=== PATIENT | male | born 1945 | race Caucasian/White ===

== ENCOUNTER 2019-05-09 12:12 | Inpatient (IN) | payer MEDICARE, OTHER ==
[~2019-05-09] VITALS: Ht 167.6 cm; Wt 98.0 kg
[2019-05-09] VITALS (31 sets, daily range): BP systolic 77–120; BP diastolic 51–81; PULSE 103–130; RESP 19–30; Ht 167.6 cm; Wt 98.0 kg
[~2019-05-09 12:12] MED LIST: ALPR1TAB7 PO; AMIO200T4 PO; AMLO-147 PO; APIX2.5T PO; ASPI-817 PO; ATOR10TA65 PO; CARV3.1260 PO; CLOP75TA28 PO; CLOT15CR6 TOP; DULO60CA60 PO; EZET10TA32 PO; FER325 PO; FURO-110 PO; FURO80TA3 PO; ICOS1CAP PO; IPRA3AMP29 HHN; LISI10TA2 PO; LISI2.5T59 PO; MEMA7CAP PO; METO25TA4 PO; MIDO10TA PO; MIDO5TAB4 PO; NITR12SP TL; PANT40TA4 PO; SYMB80120 INHALATION
[2019-05-09] MEDS ORDERED: VANCOMYCIN 1 GM (PMX) 250 ML IVPB ONE (14:00)
[2019-05-09] MEDS ORDERED: PIPER-TAZO 2.25 GM (PMX) 50 ML IVPB ONE (14:00)
[2019-05-09] MEDS ORDERED: ASPIRIN 81 MG TAB PO ONE (15:00)
[2019-05-09] MEDS ORDERED: ALPRAZOLAM 1 MG TAB PO PRN (15:30)
[2019-05-09] MEDS ORDERED: NACL 0.9% 3 ML SYG IV SCH (16:00)
[2019-05-09] MEDS ORDERED: HYDROCODONE/APAP (5/325) TAB PO PRN (16:00)
[2019-05-09] MEDS ORDERED: morphine 2 MG INJ IV PRN (16:00)
[2019-05-09] MEDS ORDERED: ONDANSETRON 4 MG INJ IV PRN (16:00)
[2019-05-09] MEDS ORDERED: ALBUTEROL/IPRATROPIUM (NEB) 3 ML AMP HHN PRN (16:00)
[2019-05-09] MEDS ORDERED: NITROGLYCERIN (SL) 0.4 MG TAB SL PRN (16:00)
[2019-05-09] MEDS ORDERED: VANCOMYCIN IV PER PHARMACY XX SCH (16:30)
[2019-05-09] MEDS ORDERED: PIPER-TAZO 3.375 GM IV (PMX) 100 ML IVPB SCH (18:00)
[2019-05-09] MEDS ORDERED: VANCOMYCIN 1 GM in 250 ML IVPB ONE (18:00)
[2019-05-09] MEDS: NORepinephrine 8MG/250 ML (PMX 250 ML IV SCH (18:25)
[2019-05-09] MEDS ORDERED: HEPARIN 1000 UNITS/ML 10 ML INJ IV ONE (19:00)
[2019-05-09] MEDS ORDERED: HEPARIN 1000 UNITS/ML 10 ML INJ IV PRN (19:00)
[2019-05-09] MEDS: ALBUTEROL/IPRATROPIUM (NEB) 3 ML AMP HHN SCH (20:21)
[2019-05-09] MEDS: BUDESONIDE (NEB) 0.5MG/2ML AMP HHN SCH (20:21)
[2019-05-09] MEDS: SOD CHLORIDE 0.9% 1,000 ML IV SCH (21:02)
[2019-05-09] MEDS: ATORVASTATIN 80 MG TAB PO SCH (21:02)
[2019-05-09] MEDS: PIPER-TAZO 2.25 GM/NS 50 ML IVPB SCH (21:03)
[2019-05-09] MEDS: HEPARIN 25000 UNITS/250 ML 250 ML IV SCH (22:18)
[2019-05-10] VITALS (112 sets, daily range): BP systolic 89–120; BP diastolic 52–105; PULSE 80–138; RESP 14–38
[2019-05-10] MEDS: PIPER-TAZO 2.25 GM/NS 50 ML IVPB SCH ×3 (05:50→21:03)
[2019-05-10] MEDS: NORepinephrine 8MG/250 ML (PMX 250 ML IV SCH (07:28)
[2019-05-10] MEDS: PANTOPRAZOLE (EC) 40 MG TAB PO SCH (08:11)
[2019-05-10] MEDS: CLOPIDOGREL 75 MG TAB PO SCH (08:11)
[2019-05-10] MEDS: DULOXETINE 30 MG CAP DR PO SCH (08:11)
[2019-05-10] MEDS: MEMANTINE 5 MG TAB PO SCH ×2 (08:11→21:03)
[2019-05-10] MEDS: ALBUTEROL/IPRATROPIUM (NEB) 3 ML AMP HHN SCH ×3 (08:17→20:06)
[2019-05-10] MEDS: BUDESONIDE (NEB) 0.5MG/2ML AMP HHN SCH ×2 (08:17→20:06)
[2019-05-10] MEDS ORDERED: ALPRAZOLAM 0.5 MG TAB PO PRN (09:00)
[2019-05-10] MEDS ORDERED: ASPIRIN (EC) 81 MG TAB PO SCH (09:00)
[2019-05-10] MEDS ORDERED: AMIODARONE 150MG/D5W BOLUS 100 ML IV ONE (09:00)
[2019-05-10] MEDS: AMIODARONE 900 MG in DEXTROSE 5% 482 ML IV SCH (09:23)
[2019-05-10] MEDS ORDERED: LORAZEPAM 0.5 MG TAB PO PRN (14:30)
[2019-05-10] MEDS: SOD CHLORIDE 0.9% 1,000 ML IV SCH ×2 (16:00→16:21)
[2019-05-10] MEDS: HEPARIN 25000 UNITS/250 ML 250 ML IV SCH (16:31)
[2019-05-10] MEDS: ATORVASTATIN 80 MG TAB PO SCH (21:03)
[2019-05-11] VITALS (92 sets, daily range): BP systolic 79–123; BP diastolic 51–91; PULSE 59–105; RESP 10–38
[2019-05-11] MEDS: AMIODARONE 900 MG in DEXTROSE 5% 482 ML IV SCH (05:01)
[2019-05-11] MEDS: PIPER-TAZO 2.25 GM/NS 50 ML IVPB SCH ×3 (05:01→21:12)
[2019-05-11] MEDS: NORepinephrine 8MG/250 ML (PMX 250 ML IV SCH (05:08)
[2019-05-11] MEDS ORDERED: VANCOMYCIN RANDOM LEVEL XX ONE (06:00)
[2019-05-11] MEDS: ALBUTEROL/IPRATROPIUM (NEB) 3 ML AMP HHN SCH ×3 (08:07→19:43)
[2019-05-11] MEDS: BUDESONIDE (NEB) 0.5MG/2ML AMP HHN SCH ×2 (08:28→19:43)
[2019-05-11] MEDS: MEMANTINE 5 MG TAB PO SCH ×2 (09:40→20:30)
[2019-05-11] MEDS: DULOXETINE 30 MG CAP DR PO SCH (09:41)
[2019-05-11] MEDS: PANTOPRAZOLE (EC) 40 MG TAB PO SCH (09:41)
[2019-05-11] MEDS: CLOPIDOGREL 75 MG TAB PO SCH (09:41)
[2019-05-11] MEDS: HEPARIN 25000 UNITS/250 ML 250 ML IV SCH (11:48)
[2019-05-11] MEDS: SOD CHLORIDE 0.9% 1,000 ML IV SCH (12:00)
[2019-05-11] MEDS: VANCOMYCIN 1 GM 250 ML IVPB SCH ×2 (13:56→16:38)
[2019-05-11] MEDS: ACETAMINOPHEN 325 MG TAB PO PRN (14:13)
[2019-05-11] MEDS ORDERED: LIDOCAINE 1% (MPF) 5 ML VIAL ONE (16:17)
[2019-05-11] MEDS ORDERED: AMIODARONE 200 MG TAB PO SCH (19:45)
[2019-05-11] MEDS: ATORVASTATIN 80 MG TAB PO SCH (20:30)
[2019-05-11] MEDS ORDERED: ZOLPIDEM 5 MG TAB PO PRN (23:30)
[2019-05-12] VITALS (86 sets, daily range): BP systolic 87–159; BP diastolic 51–147; PULSE 78–121; RESP 13–33
[2019-05-12] MEDS: HEPARIN 25000 UNITS/250 ML 250 ML IV SCH (05:06)
[2019-05-12] MEDS: PIPER-TAZO 2.25 GM/NS 50 ML IVPB SCH ×2 (05:40→13:13)
[2019-05-12] MEDS: ALBUTEROL/IPRATROPIUM (NEB) 3 ML AMP HHN SCH ×3 (08:23→20:01)
[2019-05-12] MEDS: BUDESONIDE (NEB) 0.5MG/2ML AMP HHN SCH ×2 (08:23→20:01)
[2019-05-12] MEDS: AMIODARONE 200 MG TAB PO SCH ×2 (08:49→20:23)
[2019-05-12] MEDS: PANTOPRAZOLE (EC) 40 MG TAB PO SCH (08:49)
[2019-05-12] MEDS: CLOPIDOGREL 75 MG TAB PO SCH (08:49)
[2019-05-12] MEDS: DULOXETINE 30 MG CAP DR PO SCH (08:49)
[2019-05-12] MEDS: MEMANTINE 5 MG TAB PO SCH ×2 (08:49→20:23)
[2019-05-12] MEDS ORDERED: ACETAMINOPHEN 325 MG TAB PO PRN (09:30)
[2019-05-12] MEDS ORDERED: traMADol 50 MG TAB PO PRN (09:30)
[2019-05-12] MEDS: DOCUSATE SODIUM 100 MG CAP PO SCH ×2 (10:53→20:23)
[2019-05-12] MEDS ORDERED: DIGOXIN 500 MCG INJ IV ONE (11:30)
[2019-05-12] MEDS: APIXABAN 5 MG TABLET PO SCH ×2 (13:13→22:19)
[2019-05-12] MEDS: SOD FERRIC GLUC COMPLX 125 MG in SOD CHLORIDE 0.9% 100 ML IVPB SCH (13:13)
[2019-05-12] MEDS: ACETAMINOPHEN 325 MG TAB PO PRN (14:14)
[2019-05-12] MEDS: CEFTRIAXONE 1 GM/50 ML (PMX) 50 ML IVPB SCH (16:59)
[2019-05-12] MEDS: ATORVASTATIN 80 MG TAB PO SCH (20:22)
[2019-05-13] VITALS (30 sets, daily range): BP systolic 81–158; BP diastolic 46–89; PULSE 80–109; RESP 11–28
[2019-05-13] MEDS: ALBUTEROL/IPRATROPIUM (NEB) 3 ML AMP HHN SCH ×3 (08:04→19:39)
[2019-05-13] MEDS: BUDESONIDE (NEB) 0.5MG/2ML AMP HHN SCH ×2 (08:04→19:40)
[2019-05-13] MEDS: PANTOPRAZOLE (EC) 40 MG TAB PO SCH (09:20)
[2019-05-13] MEDS: MEMANTINE 5 MG TAB PO SCH ×2 (09:20→20:49)
[2019-05-13] MEDS: CLOPIDOGREL 75 MG TAB PO SCH (09:20)
[2019-05-13] MEDS: DULOXETINE 30 MG CAP DR PO SCH (09:20)
[2019-05-13] MEDS: DOCUSATE SODIUM 100 MG CAP PO SCH ×2 (09:20→20:50)
[2019-05-13] MEDS: APIXABAN 5 MG TABLET PO SCH ×2 (09:20→20:49)
[2019-05-13] MEDS: AMIODARONE 200 MG TAB PO SCH ×2 (09:20→20:49)
[2019-05-13] MEDS: SOD FERRIC GLUC COMPLX 125 MG in SOD CHLORIDE 0.9% 100 ML IVPB SCH (13:33)
[2019-05-13] MEDS: CEFTRIAXONE 1 GM/50 ML (PMX) 50 ML IVPB SCH (16:43)
[2019-05-13] MEDS: ATORVASTATIN 80 MG TAB PO SCH (20:50)
[2019-05-14] VITALS (28 sets, daily range): BP systolic 82–116; BP diastolic 50–84; PULSE 57–113; RESP 15–22
[2019-05-14] MEDS: ALBUMIN HUMAN 25% 100 ML IV PRN (07:49)
[2019-05-14] MEDS: MEMANTINE 5 MG TAB PO SCH ×2 (08:04→21:02)
[2019-05-14] MEDS: APIXABAN 5 MG TABLET PO SCH (08:04)
[2019-05-14] MEDS: DOCUSATE SODIUM 100 MG CAP PO SCH ×2 (08:04→21:01)
[2019-05-14] MEDS: CLOPIDOGREL 75 MG TAB PO SCH (08:04)
[2019-05-14] MEDS: AMIODARONE 200 MG TAB PO SCH ×2 (08:04→21:03)
[2019-05-14] MEDS: DULOXETINE 30 MG CAP DR PO SCH (08:04)
[2019-05-14] MEDS: PANTOPRAZOLE (EC) 40 MG TAB PO SCH (08:06)
[2019-05-14] MEDS: BUDESONIDE (NEB) 0.5MG/2ML AMP HHN SCH ×2 (10:28→20:15)
[2019-05-14] MEDS: ALBUTEROL/IPRATROPIUM (NEB) 3 ML AMP HHN SCH ×3 (10:28→20:00)
[2019-05-14] MEDS ORDERED: SOD CHLORIDE 0.9% 500 ML IV ONE (12:00)
[2019-05-14] MEDS: SOD FERRIC GLUC COMPLX 125 MG in SOD CHLORIDE 0.9% 100 ML IVPB SCH (13:09)
[2019-05-14] MEDS: CEFTRIAXONE 1 GM/50 ML (PMX) 50 ML IVPB SCH (16:04)
[2019-05-14] MEDS: ATORVASTATIN 80 MG TAB PO SCH (21:01)
[2019-05-15 00:03] VITALS: BP 131/67; PULSE 107; RESP 18
[2019-05-15] MEDS: ALBUTEROL/IPRATROPIUM (NEB) 3 ML AMP HHN SCH ×3 (07:37→19:56)
[2019-05-15] MEDS: BUDESONIDE (NEB) 0.5MG/2ML AMP HHN SCH ×2 (07:37→19:56)
[2019-05-15 08:22] VITALS: BP 101/58; PULSE 106; RESP 18
[2019-05-15] MEDS: PANTOPRAZOLE (EC) 40 MG TAB PO SCH (08:55)
[2019-05-15] MEDS: DULOXETINE 30 MG CAP DR PO SCH (08:55)
[2019-05-15] MEDS: MEMANTINE 5 MG TAB PO SCH ×2 (08:55→21:36)
[2019-05-15] MEDS: DOCUSATE SODIUM 100 MG CAP PO SCH ×2 (08:55→21:36)
[2019-05-15] MEDS: AMIODARONE 200 MG TAB PO SCH ×2 (08:56→21:37)
[2019-05-15 11:00] VITALS: BP 98/64; PULSE 92; RESP 18
[2019-05-15] MEDS: SOD FERRIC GLUC COMPLX 125 MG in SOD CHLORIDE 0.9% 100 ML IVPB SCH (13:07)
[2019-05-15] MEDS: POLYETHYLENE GLYCOL 17 GM PACKET PO PRN (15:22)
[2019-05-15 15:38] VITALS: BP 93/54; PULSE 77; RESP 18
[2019-05-15] MEDS: CEFTRIAXONE 1 GM/50 ML (PMX) 50 ML IVPB SCH (17:40)
[2019-05-15] MEDS: EPOETIN ALFA-EPBX (ESRD) 10,000 UNIT/ML VIAL SC SCH (18:04)
[2019-05-15 20:20] VITALS: BP 101/57; PULSE 82; RESP 20
[2019-05-15] MEDS: ATORVASTATIN 80 MG TAB PO SCH (21:36)
[2019-05-16] VITALS (19 sets, daily range): BP systolic 83–136; BP diastolic 40–82; PULSE 64–100; RESP 18–20
[2019-05-16] MEDS: POLYETHYLENE GLYCOL 17 GM PACKET PO PRN (06:03)
[2019-05-16] MEDS: ALBUMIN HUMAN 25% 100 ML IV SCH ×2 (06:05→06:54)
[2019-05-16] MEDS: BUDESONIDE (NEB) 0.5MG/2ML AMP HHN SCH ×2 (08:53→21:15)
[2019-05-16] MEDS: ALBUTEROL/IPRATROPIUM (NEB) 3 ML AMP HHN SCH ×3 (08:53→21:15)
[2019-05-16] MEDS: DULOXETINE 30 MG CAP DR PO SCH (09:28)
[2019-05-16] MEDS: DOCUSATE SODIUM 100 MG CAP PO SCH ×2 (09:28→23:34)
[2019-05-16] MEDS: PANTOPRAZOLE (EC) 40 MG TAB PO SCH (09:28)
[2019-05-16] MEDS: MEMANTINE 5 MG TAB PO SCH ×2 (09:28→23:35)
[2019-05-16] MEDS: AMIODARONE 200 MG TAB PO SCH ×2 (09:29→23:40)
[2019-05-16] MEDS: SOD FERRIC GLUC COMPLX 125 MG in SOD CHLORIDE 0.9% 100 ML IVPB SCH (13:00)
[2019-05-16] MEDS: CEFTRIAXONE 1 GM/50 ML (PMX) 50 ML IVPB SCH (16:02)
[2019-05-16] MEDS ORDERED: MINERAL OIL 133 ML ENEMA PR ONE (16:30)
[2019-05-16] MEDS ORDERED: BISACODYL (EC) 5 MG TAB PO PRN (16:30)
[2019-05-16] MEDS: ALBUMIN HUMAN 25% 100 ML IV PRN (16:39)
[2019-05-16] MEDS ORDERED: MINERAL OIL 133 ML ENEMA PR PRN (17:00)
[2019-05-16] MEDS: ATORVASTATIN 80 MG TAB PO SCH (23:35)
[2019-05-16] MEDS: ACETAMINOPHEN 325 MG TAB PO PRN (23:42)
[2019-05-17 00:08] VITALS: BP 92/54; PULSE 84; RESP 18
[2019-05-17 03:57] VITALS: BP 100/59; PULSE 89; RESP 18
[2019-05-17 06:57] VITALS: BP 118/54; PULSE 73; RESP 18
[2019-05-17] MEDS: ALBUTEROL/IPRATROPIUM (NEB) 3 ML AMP HHN SCH ×3 (08:39→20:00)
[2019-05-17] MEDS: AMIODARONE 200 MG TAB PO SCH ×3 (09:00→21:01)
[2019-05-17] MEDS: DULOXETINE 30 MG CAP DR PO SCH (09:52)
[2019-05-17] MEDS: PANTOPRAZOLE (EC) 40 MG TAB PO SCH (09:54)
[2019-05-17] MEDS: MEMANTINE 5 MG TAB PO SCH ×2 (09:54→21:00)
[2019-05-17] MEDS: DOCUSATE SODIUM 100 MG CAP PO SCH ×2 (09:54→21:00)
[2019-05-17] MEDS: BUDESONIDE (NEB) 0.5MG/2ML AMP HHN SCH ×2 (10:26→20:00)
[2019-05-17] MEDS: ALBUMIN HUMAN 25% 100 ML IV SCH ×2 (11:47→17:53)
[2019-05-17] MEDS ORDERED: LIDOCAINE 1% (MPF) 5 ML VIAL ONE (16:05)
[2019-05-17 16:35] VITALS: BP 114/59; PULSE 79; RESP 16
[2019-05-17 17:25] VITALS: BP 106/55; PULSE 90; RESP 20
[2019-05-17] MEDS: EPOETIN ALFA-EPBX (ESRD) 10,000 UNIT/ML VIAL SC SCH (17:54)
[2019-05-17 20:00] VITALS: BP 130/72; PULSE 72; RESP 18
[2019-05-17] MEDS: ATORVASTATIN 80 MG TAB PO SCH (21:00)
[2019-05-18] VITALS (22 sets, daily range): BP systolic 83–131; BP diastolic 49–67; PULSE 65–86; RESP 18–20
[2019-05-18] MEDS: ALBUMIN HUMAN 25% 100 ML IV SCH (02:13)
[2019-05-18] MEDS: BUDESONIDE (NEB) 0.5MG/2ML AMP HHN SCH ×2 (08:30→20:00)
[2019-05-18] MEDS: ALBUTEROL/IPRATROPIUM (NEB) 3 ML AMP HHN SCH ×3 (08:30→20:00)
[2019-05-18] MEDS: DOCUSATE SODIUM 100 MG CAP PO SCH ×2 (08:34→20:30)
[2019-05-18] MEDS: DULOXETINE 30 MG CAP DR PO SCH (08:34)
[2019-05-18] MEDS: AMIODARONE 200 MG TAB PO SCH (08:36)
[2019-05-18] MEDS: MEMANTINE 5 MG TAB PO SCH ×2 (08:36→20:31)
[2019-05-18] MEDS: PANTOPRAZOLE (EC) 40 MG TAB PO SCH (08:36)
[2019-05-18] MEDS: ALBUMIN HUMAN 25% 100 ML IV PRN (10:58)
[2019-05-18] MEDS: ATORVASTATIN 80 MG TAB PO SCH (20:31)
[2019-05-19] VITALS (13 sets, daily range): BP systolic 93–124; BP diastolic 44–78; PULSE 66–94; RESP 18–24
[2019-05-19] MEDS: LISINOPRIL 5 MG TAB PO SCH (08:18)
[2019-05-19] MEDS: BUDESONIDE (NEB) 0.5MG/2ML AMP HHN SCH ×2 (09:55→20:10)
[2019-05-19] MEDS: PANTOPRAZOLE (EC) 40 MG TAB PO SCH (10:48)
[2019-05-19] MEDS: AMIODARONE 200 MG TAB PO SCH (10:48)
[2019-05-19] MEDS: DULOXETINE 30 MG CAP DR PO SCH (10:48)
[2019-05-19] MEDS: DOCUSATE SODIUM 100 MG CAP PO SCH ×2 (10:48→21:09)
[2019-05-19] MEDS: MEMANTINE 5 MG TAB PO SCH ×2 (10:48→21:05)
[2019-05-19] MEDS: FUROSEMIDE 20 MG INJ IV SCH (11:41)
[2019-05-19] MEDS: ALBUTEROL/IPRATROPIUM (NEB) 3 ML AMP HHN SCH ×2 (14:26→20:10)
[2019-05-19] MEDS: EPOETIN ALFA-EPBX (ESRD) 10,000 UNIT/ML VIAL SC SCH (17:52)
[2019-05-19] MEDS: ATORVASTATIN 80 MG TAB PO SCH (21:09)
[2019-05-20] VITALS (20 sets, daily range): BP systolic 90–111; BP diastolic 47–70; PULSE 65–92; RESP 18–22
[2019-05-20] MEDS: BUDESONIDE (NEB) 0.5MG/2ML AMP HHN SCH ×2 (07:37→19:46)
[2019-05-20] MEDS: ALBUTEROL/IPRATROPIUM (NEB) 3 ML AMP HHN SCH ×3 (07:37→19:46)
[2019-05-20] MEDS: FUROSEMIDE 20 MG INJ IV SCH (09:00)
[2019-05-20] MEDS: LISINOPRIL 5 MG TAB PO SCH (09:00)
[2019-05-20] MEDS: MEMANTINE 5 MG TAB PO SCH ×2 (09:14→21:12)
[2019-05-20] MEDS: DULOXETINE 30 MG CAP DR PO SCH (09:14)
[2019-05-20] MEDS: PANTOPRAZOLE (EC) 40 MG TAB PO SCH (09:14)
[2019-05-20] MEDS: DOCUSATE SODIUM 100 MG CAP PO SCH ×2 (09:14→21:12)
[2019-05-20] MEDS: AMIODARONE 200 MG TAB PO SCH (09:17)
[2019-05-20] MEDS: ALBUMIN HUMAN 25% 100 ML IV PRN (11:00)
[2019-05-20] MEDS: POLYETHYLENE GLYCOL 17 GM PACKET PO PRN (14:55)
[2019-05-20] MEDS: ATORVASTATIN 80 MG TAB PO SCH (21:12)
[2019-05-21] VITALS (10 sets, daily range): BP systolic 95–122; BP diastolic 47–57; PULSE 65–103; RESP 18–22
[2019-05-21] MEDS: ALBUTEROL/IPRATROPIUM (NEB) 3 ML AMP HHN SCH ×3 (07:54→19:34)
[2019-05-21] MEDS: BUDESONIDE (NEB) 0.5MG/2ML AMP HHN SCH ×2 (07:54→19:34)
[2019-05-21] MEDS: DOCUSATE SODIUM 100 MG CAP PO SCH ×2 (08:38→21:00)
[2019-05-21] MEDS: PANTOPRAZOLE (EC) 40 MG TAB PO SCH (08:38)
[2019-05-21] MEDS: MEMANTINE 5 MG TAB PO SCH ×2 (08:38→21:08)
[2019-05-21] MEDS: AMIODARONE 200 MG TAB PO SCH (08:39)
[2019-05-21] MEDS: DULOXETINE 30 MG CAP DR PO SCH (08:39)
[2019-05-21] MEDS: FUROSEMIDE 20 MG INJ IV SCH (08:40)
[2019-05-21] MEDS: LISINOPRIL 5 MG TAB PO SCH (09:00)
[2019-05-21] MEDS ORDERED: BISACODYL 10 MG SUPP PR PRN (10:30)
[2019-05-21] MEDS: ATORVASTATIN 80 MG TAB PO SCH (21:08)
[2019-05-22] VITALS (21 sets, daily range): BP systolic 13–145; BP diastolic 24–78; PULSE 60–89; RESP 18–20
[2019-05-22] MEDS: ALBUTEROL/IPRATROPIUM (NEB) 3 ML AMP HHN SCH ×3 (08:38→19:41)
[2019-05-22] MEDS: BUDESONIDE (NEB) 0.5MG/2ML AMP HHN SCH ×2 (08:38→19:41)
[2019-05-22] MEDS: LISINOPRIL 5 MG TAB PO SCH (09:00)
[2019-05-22] MEDS: AMIODARONE 200 MG TAB PO SCH (09:05)
[2019-05-22] MEDS: MEMANTINE 5 MG TAB PO SCH (09:05)
[2019-05-22] MEDS: PANTOPRAZOLE (EC) 40 MG TAB PO SCH (09:05)
[2019-05-22] MEDS: DOCUSATE SODIUM 100 MG CAP PO SCH ×2 (09:06→20:21)
[2019-05-22] MEDS: DULOXETINE 30 MG CAP DR PO SCH (09:06)
[2019-05-22] MEDS: FUROSEMIDE 20 MG INJ IV SCH (09:07)
[2019-05-22] MEDS ORDERED: MIDODRINE 5 MG TAB PO ONE (14:30)
[2019-05-22] MEDS: EPOETIN ALFA-EPBX (ESRD) 10,000 UNIT/ML VIAL SC SCH (17:31)
[2019-05-22] MEDS: ATORVASTATIN 80 MG TAB PO SCH (23:08)
[2019-05-23 01:28] VITALS: BP 101/60; PULSE 107; RESP 16
[2019-05-23] MEDS: ALBUTEROL/IPRATROPIUM (NEB) 3 ML AMP HHN SCH ×2 (07:11→13:46)
[2019-05-23] MEDS: BUDESONIDE (NEB) 0.5MG/2ML AMP HHN SCH (07:11)
[2019-05-23 08:00] VITALS: BP 96/53; PULSE 72; RESP 16
[2019-05-23] MEDS: LISINOPRIL 5 MG TAB PO SCH (08:15)
[2019-05-23] MEDS: DULOXETINE 30 MG CAP DR PO SCH (09:18)
[2019-05-23] MEDS: DOCUSATE SODIUM 100 MG CAP PO SCH (09:18)
[2019-05-23] MEDS: AMIODARONE 200 MG TAB PO SCH (09:19)
[2019-05-23] MEDS: PANTOPRAZOLE (EC) 40 MG TAB PO SCH (09:19)
[2019-05-23] MEDS ORDERED: FUROSEMIDE 20 MG INJ IV SCH ×2 (09:20→09:30)
[2019-05-23 13:20] VITALS: BP 95/55; PULSE 73; RESP 18
== END 2019-05-23 16:40 | disposition home or self-care (01) | DRG 871 ==
LOC: E/R 12:12 → ICU 15:16 → EDBEDREQ 15:34 → ICU 19:51 → 6WM 05-14 10:11 → 2NE 05-23 00:58
PROVIDERS: ADMIT Internal Medicine; ATTEND Family Medicine
PROC: 5A1D70Z Performance of Urinary Filtration, Intermittent, Less than 6 Hours Per Day (ICD-10-PCS; 2019-05-10)
PROC: 0W993ZZ Drainage of Right Pleural Cavity, Percutaneous Approach (ICD-10-PCS; principal; 2019-05-11)
PROC: 30233N1 Transfusion of Nonautologous Red Blood Cells into Peripheral Vein, Percutaneous Approach (ICD-10-PCS; 2019-05-11)
PROC: 0W9B3ZZ Drainage of Left Pleural Cavity, Percutaneous Approach (ICD-10-PCS; 2019-05-17)
DX: A41.9 Sepsis, unspecified organism (principal); R65.21 Severe sepsis with septic shock; J96.21 Acute and chronic respiratory failure with hypoxia; J18.9 Pneumonia, unspecified organism; I21.A1 Myocardial infarction type 2; N18.6 End stage renal disease; I21.4 Non-ST elevation (NSTEMI) myocardial infarction; I50.23 Acute on chronic systolic (congestive) heart failure; J90 Pleural effusion, not elsewhere classified; I13.2 Hypertensive heart and chronic kidney disease with heart failure and with stage 5 chronic kidney disease, or end stage renal disease; E87.70 Fluid overload, unspecified; I25.10 Atherosclerotic heart disease of native coronary artery without angina pectoris; D50.9 Iron deficiency anemia, unspecified; D63.1 Anemia in chronic kidney disease; E78.5 Hyperlipidemia, unspecified; E83.39 Other disorders of phosphorus metabolism; E66.9 Obesity, unspecified; F39 Unspecified mood [affective] disorder; F03.90 Unspecified dementia, unspecified severity, without behavioral disturbance, psychotic disturbance, mood disturbance, and anxiety; G47.33 Obstructive sleep apnea (adult) (pediatric); K21.9 Gastro-esophageal reflux disease without esophagitis; D69.6 Thrombocytopenia, unspecified; I48.2 Chronic atrial fibrillation; I95.9 Hypotension, unspecified; K74.60 Unspecified cirrhosis of liver; Z68.34 Body mass index [BMI] 34.0-34.9, adult; Z95.5 Presence of coronary angioplasty implant and graft; Z99.81 Dependence on supplemental oxygen; Z99.2 Dependence on renal dialysis; Z79.82 Long term (current) use of aspirin; Z79.02 Long term (current) use of antithrombotics/antiplatelets
CPT/HCPCS: 32555; 36415; 36430; 36600; 71045; 71250; 76942; 80048; 80053; 80061; 80069; 80202; 81001; 82270; 82550; 82553; 82607; 82746; 82803; 82945; 82962; 83036; 83540; 83605; 83615; 83735; 84100; 84157; 84443; 84484; 85014; 85018; 85025; 85045; 85610; 85730; 86850; 86900; 86901; 86920; 87070; 87081; 87086; 87102; 87116; 87340; 88104; 88305; 89051; 90935; 93005; 93306; 94640; 94660; 94664; 96365; 96375; 97110; 97161; J0282; J0696; J1644; J1940; J2270; J2543; J2916; J3370; J7030; J7040; J7060; P9016; P9047; Q5105